=== PATIENT | female | born 1990 | race Caucasian/White ===

== ENCOUNTER → 2018-07-29 | Outpatient (CLI) | payer MEDICAID ==
--- NOTE | 2018-07-29 16:25 | RADIOLOGY REPORT (SQ) ---
EXAM DESCRIPTION: U/S OB 14+ TRNABD 1GES W/O DOP COMPLETED DATE/TIME: 07/29/2018 4:13 pm REASON FOR STUDY: Z34.82 ENCOUNTER FOR SUPERVISION OF OTHER NORMAL , SECOND TRIMESTE Z34.82 ENCOUNTER FOR SUPRVSN OF NORMAL , SECOND TRI COMPARISON: No previous this TECHNIQUE: Static and Dynamic grayscale imaging performed of gravid uterus using transabdominal appr oach. Additional selected color Doppler and spectral images recorded. All stored on PACS. LIMITATIONS: None. FINDINGS: FETUSES SEEN:1 EGA: 16 weeks 3 days Calculated using BPD,FL,HC,AC documented on images. No clinical dates for terri rison NANCY: 01/10/2019 EFW: 150 grams PERCENTILE: Not calculated TAYLOR: Largest pocket 3.4 cm PLACENTA: Anterior fundal GRADE: I PRESENTATION: Cephalic. ANATOMY: HEART RATE: 163 beats per minute. FOUR CHAMBER HEART: Visualized. THREE VESSEL CORD: Yes. CORD INSERTION: Visualized. KIDNEYS AND BLADDER: Visualized. Appear normal. STOMACH: Visualized. Appears normal. SPINE: Normal as visualized. BRAIN AND LATERAL VENTRICLES: Visualized. Appear normal. OTHER: No other significant finding. MATERNAL ADNEXA: Maternal ovaries not visualized. CERVICAL LENGTH: 4.1 cm Closed. OTHER: No other significant finding. IMPRESSION: LIVING INTRAUTERINE . ESTIMATED GESTATIONAL AGE 16 weeks 3 days NO VISUALIZED ANOMALIES. Trimester of : Second trimester - 13 weeks 1 day to 27 weeks 6 days. TECHNICAL DOCUMENTATION: JOB ID: [id number] [employer]- All Rights Reserved Reading location - IP/workstation name: [email or web address]
== END ==
LOC: RAD 15:12
PROVIDERS: ATTEND Midwife
DX: Z34.82 Encounter for supervision of other normal pregnancy, second trimester (principal)
CPT/HCPCS: 76805

== ENCOUNTER 2019-01-11 17:12 | Outpatient (CLI) | payer MEDICAID ==
--- NOTE | 2019-01-11 18:09 | Non Stress Test Report ---
Non Stress Test Datetime Report Generated by CPN: 01/11/2019 18:09 INDICATION Indication for Study: Ordered by Provider VITAL SIGNS Temperature - NST: 98.0 RESP - NST: 16 MONITORING Monitor Explained: Monitor Explained; Test Explained; Patient Verbalized Understanding Time on Monitor: 01/11/2019 17:23 Time off Monitor: 01/11/2019 18:05 NST Duration: 42 NST INTERVENTIONS NST Interventions: PO Hydration; Reposition Patient Physician Notified NST: Dr. Jacobsen BABY A: [id number] BABY A Movement : Present Contraction Frequency : none Accelerations : 15X15 Decelerations : None Variability : Moderate 6-25bpm NST Review: Meets Criteria for Reactive NST NST Review and Verified By : CAMDEN Mccord NST Results: Reactive NST REPORT Report Trigger: Send Report
== END 2019-01-11 17:55 | disposition home or self-care (01) ==
LOC: LC 17:12
PROVIDERS: ATTEND Student in an Organized Health Care Education/Training Program
PROC: 4A1HXCZ Monitoring of Products of Conception, Cardiac Rate, External Approach (ICD-10-PCS; principal; 2019-01-11)
DX: O48.0 Post-term pregnancy (principal); Z3A.40 40 weeks gestation of pregnancy
CPT/HCPCS: 59025

== ENCOUNTER 2019-01-14 17:39 | Inpatient (IN) | payer MEDICAID ==
[2019-01-14] MEDS ORDERED: RINGERS SOLUTION,LACTATED 1,000 ML IV ONE (17:54)
[2019-01-14] MEDS ORDERED: MISOPROSTOL 0.2 MG TABLET ONE (17:54)
[2019-01-14] MEDS ORDERED: RINGERS SOLUTION,LACTATED 1,000 ML IV PRN (17:54)
[2019-01-14] MEDS ORDERED: VANCOMYCIN HCL INJ 1000 MG VIAL ONE (17:54)
[2019-01-14] MEDS ORDERED: OXYTOCIN 10 UNIT/ML VIAL ONE (17:54)
[2019-01-14] MEDS ORDERED: OXYTOCIN/NORMAL SALINE 20 UNIT/1,000 ML RTUINJ ONE (17:55)
[2019-01-14] MEDS ORDERED: LIDOCAINE 1% INJ-PF (10 MG/ML) 30 ML SDV ONE (17:55)
[2019-01-14] MEDS ORDERED: VANCOMYCIN HCL 1,000 MG in DEXTROSE 5%-WATER 250 ML IV SCH (18:00)
[2019-01-14] MEDS ORDERED: NALBUPHINE HCL INJ 10 MG/1 ML AMPULE INJ ONE (18:21)
[2019-01-14] MEDS ORDERED: NALBUPHINE HCL INJ 10 MG/1 ML AMPULE ONE (18:22)
[2019-01-14] MEDS ORDERED: PROMETHAZINE HCL INJ 25 MG/1 ML VIAL ONE (18:24)
[2019-01-14 18:29] LABS: APPEARANCE,URINE CLEAR; BILIRUBIN,URINE NEGATIVE (NEGATIVE); COLOR,URINE YELLOW; GLUCOSE, URINE NEGATIVE (NEGATIVE); KETONES,URINE NEGATIVE (NEGATIVE); LEUKOCYTE ESTERASE,URINE NEGATIVE (NEGATIVE); NITRITE,URINE NEGATIVE (NEGATIVE); PROTEIN,URINE NEGATIVE (NEGATIVE); URINE SPECIFIC GRAVITY 1.009; UROBILINOGEN,URINE NEGATIVE mg/dL (<2.0)
[2019-01-14 18:40] LABS: URINE AMPHETAMINES SCREEN NEGATIVE; URINE BARBITURATES SCREEN NEGATIVE; URINE BENZODIAZEPINES SCREEN NEGATIVE; URINE COCAINE SCREEN NEGATIVE; URINE MARIJUANA (THC) SCREEN NEGATIVE; URINE METHADONE SCREEN NEGATIVE; URINE PHENCYCLIDINE SCREEN NEGATIVE
[2019-01-14 18:42] LABS: ABSOLUTE BASOPHILS # (AUTO) 0.1 10^3/uL (0.0-0.2); ABSOLUTE EOSINOPHILS # (AUTO) 0.2 10^3/uL (0.0-0.6); ABSOLUTE LYMPHOCYTES (AUTO) 1.5 10^3/uL (0.5-4.7); ABSOLUTE MONOCYTES (AUTO) 0.6 10^3/uL (0.1-1.4); ABSOLUTE NEUT (AUTO) 6.6 10^3/uL (1.7-8.2); BASOPHILS % (AUTO) 0.6 % (0-2); EOSINOPHILS % (AUTO) 1.9 % (0-6); HEMATOCRIT 34.8 % (36.0-47.0); LYMPHOCYTES % (AUTO) 17.2 % (13-45); MEAN CORPUSCULAR HEMOGLOBIN 28.2 pg (27.0-33.4); MEAN CORPUSCULAR HGB CONC 34.4 g/dL (32.0-36.0); MEAN CORPUSCULAR VOLUME 82 fl (80-97); MONOCYTES % (AUTO) 6.9 % (3-13); PLATELET COUNT 201 10^3/uL (150-450); RED BLOOD COUNT 4.24 10^6/uL (3.72-5.28); RED CELL DISTRIBUTION WIDTH 14.9 % (11.5-14.0); SEGMENTED NEUTROPHILS % (AUTO) 73.4 % (42-78); TOTAL CELLS COUNTED % (AUTO) 100 %; WHITE BLOOD COUNT 8.9 10^3/uL (4.0-10.5)
[2019-01-14] MEDS ORDERED: EPHEDRINE SULFATE INJ 50 MG/1 ML AMPULE ONE (20:22)
[2019-01-14] MEDS ORDERED: PHENYLEPHRINE HCL INJ/PF 10 MG/1 ML SDV ONE (20:22)
[2019-01-14] MEDS ORDERED: FENTANYL CITRATE INJ/PF 100 MCG/2 ML AMPUL ONE (20:22)
[2019-01-14] MEDS ORDERED: BUPIVACAINE HCL 0.25 % INJ/PF (2.5 MG/1 ML) 30 ML VIAL ONE (20:23)
[2019-01-14] MEDS ORDERED: FENTANYL/BUPIVACAINE/NS/PF 0 MCG/0 ML RTUINJ EPI ONE (20:23)
[2019-01-14] MEDS ORDERED: IBUPROFEN 800 MG TABLET ONE (21:04)
[2019-01-14] MEDS ORDERED: ACETAMINOPHEN WITH CODEINE #3 TABLET ONE (21:04)
[2019-01-14] MEDS ORDERED: DIPHENHYDRAMINE HCL 25 MG CAPSULE PO PRN (21:08)
[2019-01-14] MEDS ORDERED: BENZOCAINE/MENTHOL AEROSOL SPRAY 56 ML TOP PRN (21:08)
[2019-01-14] MEDS ORDERED: PROMETHAZINE HCL INJ 25 MG/1 ML VIAL IV PRN (21:08)
[2019-01-14] MEDS ORDERED: PROMETHAZINE HCL 25 MG SUPP.RECT PR PRN (21:08)
[2019-01-14] MEDS ORDERED: MEASLES,MUMPS&RUBELLA VACC/PF 0.5 ML VIAL SUBCUT PRN (21:08)
[2019-01-14] MEDS ORDERED: DIBUCAINE 1% OINTMENT 56 GM TP PRN (21:08)
[2019-01-14] MEDS ORDERED: PROMETHAZINE HCL 25 MG TABLET PO PRN (21:08)
[2019-01-14] MEDS ORDERED: ACETAMINOPHEN 650 MG SUPP.RECT PR PRN (21:08)
[2019-01-14] MEDS ORDERED: ZOLPIDEM TARTRATE 5 MG TABLET PO PRN (21:08)
[2019-01-14] MEDS ORDERED: OXYTOCIN/NORMAL SALINE 20 UNIT/1,000 ML RTUINJ IV PRN (21:08)
[2019-01-14] MEDS ORDERED: PSEUDOEPHEDRINE HCL 30 MG TABLET PO PRN (21:08)
[2019-01-14] MEDS ORDERED: NA PHOS,M-B/NA PHOS,DI-BA (ADULT) 133 ML ENEMA PR PRN (21:08)
[2019-01-14] MEDS ORDERED: MAGNESIUM HYDROXIDE SUSP 30 ML UDCUP PO PRN (21:08)
[2019-01-14] MEDS ORDERED: DIPH/PERTUSS(ACELL)/TETANUS VAC/PF 0.5 ML SYR (>=10YO) IM PRN (21:08)
[2019-01-14] MEDS ORDERED: ACETAMINOPHEN WITH CODEINE #3 TABLET PO PRN (21:08)
[2019-01-14] MEDS ORDERED: GLYCERIN/WITCH HAZEL LEAF 1 EACH MED..WIPE TP PRN (21:08)
--- NOTE | 2019-01-14 21:50 | Warning Signs in Babies ---
VOD Warning Signs Datetime Report Generated by [facility]: 01/14/2019 21:49 VOD#[id number] -Warning Signs in Babies: Needs to be viewed. (01/14/2019 21:02:Marietta Walker RN)
[2019-01-14] MEDS: FAMOTIDINE 20 MG TABLET PO SCH (23:38)
[2019-01-14] MEDS: IBUPROFEN 800 MG TABLET PO SCH (23:41)
--- NOTE | 2019-01-15 05:13 | Delivery Summary ---
Del Sum A-C Datetime Report Generated by CPN: 01/15/2019 05:13 DELIVERY PERSONNEL DELIVERY PERSONNEL: [id number] Delivery Doctor:: Lana Chopra MD Labor and Delivery Nurse:: Marietta Walker RN Labor and Delivery Nurse:: Su Goldberg RN Nursery Nurse:: Mayra Zuleta RN MATERNAL INFORMATION Delivery Anesthesia: None Medications After Delivery: Pitocin Bolus-Please Comment Meds After Delivery Comment: 20 units pitocin after placenta delivery Estimated Blood Loss (ml): 200 Maternal Complications: None LABOR SUMMARY EDC: 01/10/2019 00:00 No. Babies in Womb: 1 Attempted: No Labor Anesthesia: None LABOR INFORMATION Reason for Induction: Not Applicable Onset of Labor: 01/14/2019 17:52 Complete Dilatation: 01/14/2019 20:53 Oxytocin: N/A Group B Beta Strep: positive Antibiotics # of Doses: 1 Name of Antibiotic Given: vancomycin Steroids Given: None Reason Steroids Not Administered: Not Applicable MEMBRANES Membranes Rupture Method: Spontaneous Rupture of Membranes: 01/14/2019 18:36 Length of Rupture (hr): 2.35 Amniotic Fluid Color: Moderate Meconium Amniotic Fluid Color: Clear Amniotic Fluid Amount: Small Amniotic Fluid Odor: Normal STAGES OF LABOR Stage 1 hr: 3 Stage 1 min: 1 Stage 2 hr: 0 Stage 2 min: 4 Stage 3 hr: 0 Stage 3 min: 2 Total Time in Labor hr: 3 Total Time in Labor min: 7 VAGINAL DELIVERY Episiotomy: None Laceration #1: None Laceration Extension #1: N/A Laceration Repair: Not Applicable Sponge Count Correct: N/A Sharps Count Correct: N/A CSECTION DELIVERY Primary Indication: N/A Secondary Indication: N/A CSection Urgency: N/A CSection Incidence: N/A Labor: N/A Elective: N/A CSection Incision: N/A BABY A INFORMATION Infant Delivery Date/Time: 01/14/2019 20:57 Method of Delivery: Vaginal Born in Route : No : N/A Forceps: N/A Vacuum Extraction: N/A Shoulder Dystocia : Yes PRESENTATION/POSITION BABY A Presentation: Cephalic Cephalic Presentation: Vertex Vertex Position: Right Occipital Anterior Breech Presentation: N/A PLACENTA INFORMATION BABY A Placenta Delivery Time : 01/14/2019 20:59 Placenta Method of Delivery: Spontaneous Placenta Status: Delivered SCORES BABY A Heart Rate 1 min: >100 bpm Resp Effort 1 min: Good Cry Reflex Irritability 1 min: Cough or Sneeze or Pulls Away Muscle Tone 1 min: Some Flexion of Extremities Color 1 min: Blue/Pale Resuscitation Effort 1 min: Tactile Stimulation SCORE 1 MIN: 7 Heart Rate 5 min: >100 bpm Resp Effort 5 min: Good Cry Reflex Irritability 5 min: Cough or Sneeze or Pulls Away Muscle Tone 5 min: Active Motion Color 5 min: Body [place], Extremities Blue Resuscitation Effort 5 min: N/A SCORE 5 MIN: 9 INFORMATION BABY A Gestational Age at Delivery: 40.4 Gestational Status: Full Term- 39- 40.6 Weeks Outcome : Liveborn Condition : Stable Sex: Female IDENTIFICATION BABY A Verification Date/Time: 01/14/2019 21:39 ID Band Number: [id number] Mother's Name Verified: Yes Infant RN Verifying : Magnus Stanford, RN Additional Verifying Personnel: Tressa Goldberg RN WEIGHT/LENGTH BABY A Infant Birthweight (gm): 3413 Weight (lb): 7 Infant Weight (oz): 8 Infant Length (in): 20.00 Length (cm): 50.80 CORD INFORMATION BABY A No. Cord Vessels: 3 Nuchal Cord : Around Neck x2, Loose Cord Blood Taken: Yes-For Eval (Mom's Blood Type - or O+) Infant Suction: Mouth; Nose ASSESSMENT BABY A Complications: Meconium Physical Findings at Delivery: Other Physical Findings- Other: see nursery notes Infant Respirations: Appears Normal Skin to Skin: Yes Skin to Skin Time (min): 10 Meters Superintendent/ALS Called : No Care By: Mayra Jarrellxell RN Transferred To: Remains with Mother BABY B INFORMATION : N/A SIGNATURES Signature: with User ID: [email or web address]
[2019-01-15] MEDS: IBUPROFEN 800 MG TABLET PO SCH ×3 (06:11→21:52)
[2019-01-15 06:50] LABS: HEMATOCRIT 31.9 % (36.0-47.0); MEAN CORPUSCULAR HEMOGLOBIN 28.6 pg (27.0-33.4); MEAN CORPUSCULAR HGB CONC 34.6 g/dL (32.0-36.0); MEAN CORPUSCULAR VOLUME 83 fl (80-97); PLATELET COUNT 180 10^3/uL (150-450); RED BLOOD COUNT 3.86 10^6/uL (3.72-5.28); RED CELL DISTRIBUTION WIDTH 14.8 % (11.5-14.0); WHITE BLOOD COUNT 10.5 10^3/uL (4.0-10.5)
[2019-01-15] MEDS: SENNOSIDES/DOCUSATE 8.6-50 MG 1 EACH TABLET PO SCH (09:53)
[2019-01-15] MEDS: DOCUSATE SODIUM 100 MG CAPSULE PO SCH ×2 (09:53→18:38)
[2019-01-15] MEDS: PRENATAL VITAMIN W DHA CAPSULE PO SCH (09:53)
[2019-01-15] MEDS: FERROUS SULFATE 325 MG TABLET PO SCH ×2 (09:53→18:38)
[2019-01-15] MEDS: FAMOTIDINE 20 MG TABLET PO SCH ×2 (09:53→21:52)
[2019-01-15] MEDS: ACETAMINOPHEN WITH CODEINE #3 TABLET PO PRN ×2 (09:59→20:47)
--- NOTE | 2019-01-15 10:19 | PDOC PROGRESS REPORT ---
Subjective-OB Progress Note for:: 01/15/19 - PP Day #1, doing well, no complaints, O+, Rubella Immune Physical Exam (OB) Vital Signs: Temp Pulse Resp BP Pulse Ox 98.7 F 66 14 107/61 98 01/15/19 07:35 01/15/19 07:35 01/15/19 07:35 01/15/19 07:35 01/15/19 07:35 Intake & Output 01/14/19 01/15/19 01/16/19 06:59 06:59 06:59 Weight 68.2 kg - General General Appearance: Appears well, Alert In distress: None - Lochia Lochia Amount: Scant < 10 ml Lochia Color: Rubra/Red - Abdomen Description: Tender, Soft Hernia Present: No Fundal Description: Firm, Midline Fundal Height: u/u - u/2 - Respiratory Respiratory Status: No respiratory distress - Abdominal Distension: No distension - Genitourinary Genitourinary Note: voiding - Extremities Upper extremity: Normal inspection Lower extremities: Normal inspection - Neurological Cognition: Normal Orientation: AAOx4 - Psychological Associated symptoms: Normal affect, Normal mood - Skin Skin Temperature: Warm Skin Moisture: Dry Objective-Diagnostic Laboratory: 01/15/19 06:34 01/14/19 01/14/19 01/14/19 17:33 18:27 18:27 WBC 8.9 RBC 4.24 Hgb 12.0 Hct 34.8 L MCV 82 MCH 28.2 MCHC 34.4 RDW 14.9 H Plt Count 201 Seg Neutrophils % 73.4 Lymphocytes % 17.2 Monocytes % 6.9 Eosinophils % 1.9 Basophils % 0.6 Absolute Neutrophils 6.6 Absolute Lymphocytes 1.5 Absolute Monocytes 0.6 Absolute Eosinophils 0.2 Absolute Basophils 0.1 Urine Color YELLOW Urine Appearance CLEAR Urine pH 7.0 Ur Specific [place] 1.009 Urine Protein NEGATIVE Urine Glucose (UA) NEGATIVE Urine Ketones NEGATIVE Urine Blood LARGE H Urine Nitrite NEGATIVE Ur Leukocyte Esterase NEGATIVE Blood Type O POSITIVE Antibody Screen NEGATIVE 01/15/19 06:34 WBC 10.5 RBC 3.86 Hgb 11.0 L Hct 31.9 L MCV 83 MCH 28.6 MCHC 34.6 RDW 14.8 H Plt Count 180 Seg Neutrophils % Lymphocytes % Monocytes % Eosinophils % Basophils % Absolute Neutrophils Absolute Lymphocytes Absolute Monocytes Absolute Eosinophils Absolute Basophils Urine Color Urine Appearance Urine pH Ur Specific [place] Urine Protein Urine Glucose (UA) Urine Ketones Urine Blood Urine Nitrite Ur Leukocyte Esterase Blood Type Antibody Screen Assessment and Plan(PN) - Assessment and Plan (1) (normal spontaneous vaginal delivery) Is this a current diagnosis for this admission?: Yes (2) Group beta Strep positive Is this a current diagnosis for this admission?: Yes - Time Spent with Patient Time with patient: Less than 15 minutes Medications reviewed and adjusted accordingly: Yes - Disposition Anticipated Discharge: Home Within: within 24 hours
[2019-01-16] MEDS: IBUPROFEN 800 MG TABLET PO SCH ×2 (06:15→13:29)
[2019-01-16 08:06] VITALS: BP 96/59
[2019-01-16] MEDS: FERROUS SULFATE 325 MG TABLET PO SCH (09:45)
[2019-01-16] MEDS: DOCUSATE SODIUM 100 MG CAPSULE PO SCH (09:45)
[2019-01-16] MEDS: PRENATAL VITAMIN W DHA CAPSULE PO SCH (09:45)
[2019-01-16] MEDS: SENNOSIDES/DOCUSATE 8.6-50 MG 1 EACH TABLET PO SCH (09:45)
[2019-01-16] MEDS: FAMOTIDINE 20 MG TABLET PO SCH (09:45)
--- NOTE | 2019-01-16 09:51 | PDOC DISCHARGE SUMMARY ---
Final Diagnosis Discharge Date: 01/16/19 - Final Diagnosis (1) Group beta Strep positive Is this a current diagnosis for this admission?: Yes (2) (normal spontaneous vaginal delivery) Is this a current diagnosis for this admission?: Yes Discharge Data - Discharge Medication Home Medications: No122/Iron/Folic Acid [ Multi Tablet] 1 tab PO DAILY 01/11/19 Reason(s) for Admission: Onset of Labor Procedures: NST Intrapartum Procedure(s): Spontaneous Vaginal Delivery - Diagnosis Test Laboratory: Temp Pulse Resp BP Pulse Ox 98.3 F 90 16 96/59 L 100 01/16/19 08:05 01/16/19 08:05 01/16/19 08:05 01/16/19 08:05 01/16/19 08:05 01/14/19 01/14/19 01/15/19 17:33 18:27 06:34 RBC 4.24 3.86 Hgb 12.0 11.0 L Hct 34.8 L 31.9 L Urine Opiates Screen NEGATIVE - Discharge information/Instructions Discharge Activity: Balance Activity w/Rest, Pelvic Rest Discharge Diet: Regular Disposition: HOME, SELF-CARE Follow up with: [facility] in: 4, Weeks
--- NOTE | 2019-02-16 14:11 | PDOC H&P ---
History of Present Illness Admission Date/PCP: 01/14/19 17:55 RHETT SILVA MD History of Present Illness: PRO TRUJILLO is a 28 year old female at 40 4/7 wks EGA presenting with c omplaint of contractions every 3-5 minutes. Social History Information Source: Patient Lives with: Family, Spouse/Significant other Smoking Status: Unknown if Ever Smoked Frequency of Alcohol Use: None Hx Recreational Drug Use: No Family History Family History: None, Reviewed & Not Pertinent Parental Family History Reviewed: Yes Children Family History Reviewed: Yes Sibling(s) Family History Reviewed.: Yes Medication/Allergy Home Medications: No122/Iron/Folic Acid [ Multi Tablet] 1 tab PO DAILY 01/11/19 Ibuprofen [Motrin 800 mg Tablet] 800 mg PO Q8HP PRN #60 tablet 01/16/19 Allergies/Adverse Reactions: amoxicillin [Amoxicillin] Allergy (Unknown, Verified 01/11/19 18:10) latex Allergy (Verified 01/11/19 18:10) Review of Systems Constitutional: PRESENT: as per HPI Physical Exam - Physical Exam Vital Signs: Temp Pulse Resp BP Pulse Ox 98.3 F 90 16 96/59 L 100 01/16/19 13:44 01/16/19 13:44 01/16/19 13:44 01/16/19 13:44 01/16/19 13:44 General appearance: PRESENT: mild distress Head exam: PRESENT: atraumatic, normocephalic - Obstetrical Exam Dilation (cm): 5 Effacement (%): 90 Station: -1 Fundal Height: 3/u - 4/u Result Laboratory Results: 01/15/19 06:34 Assessment & Plan - Diagnosis (1) Qualifiers: Weeks of gestation: 41 weeks Qualified Code(s): Z3A.41 - 41 weeks gestation of Is this a current diagnosis for this admission?: Yes (2) Active labor at term Is this a current diagnosis for this admission?: Yes - Time Time Spent: 30 to 50 Minutes Critical Time spent with patient: Less than 15 minutes Anticipated discharge: Home Within: within 48 hours - Inpatient Certification Based on my medical assessment, after consideration of the patient's comorbidities, presenting symptoms, or acuity I expect that the services needed warrant INPATIENT care.: Yes I certify that my determination is in accordance with my understanding of Medicare's requirements for reasonable and necessary INPATIENT services [42 CFR 412.3e].: Yes Medical Necessity: Other - anticipate normal vaginal delivery
== END 2019-01-16 16:20 | disposition home or self-care (01) | DRG 807 ==
LOC: LC 17:39 → LR 17:55 → 2S 23:11
PROVIDERS: ADMIT Obstetrics & Gynecology; ATTEND Obstetrics & Gynecology
PROC: 10E0XZZ Delivery of Products of Conception, External Approach (ICD-10-PCS; principal; 2019-01-14)
DX: O99.824 Streptococcus B carrier state complicating childbirth (principal); Z37.0 Single live birth; O69.81X0 Labor and delivery complicated by cord around neck, without compression, not applicable or unspecified; O77.0 Labor and delivery complicated by meconium in amniotic fluid; O66.0 Obstructed labor due to shoulder dystocia; Z3A.40 40 weeks gestation of pregnancy; Z88.0 Allergy status to penicillin; Z91.040 Latex allergy status
CPT/HCPCS: 36415; 80307; 81005; 85025; 85027; 86592; 86850; 86900; 86901; J2300; J2370; J2550; J2590; J3010; J3370; J3490; J7060

== ENCOUNTER → 2020-02-19 | Outpatient (CLI) | payer OTHER ==
[2020-02-19 15:59] LABS: ABSOLUTE EOSINOPHILS # (AUTO) 0.1 10^3/uL (0.0-0.6); ABSOLUTE LYMPHOCYTES (AUTO) 1.3 10^3/uL (0.5-4.7); ABSOLUTE MONOCYTES (AUTO) 0.3 10^3/uL (0.1-1.4); ABSOLUTE NEUT (AUTO) 5.8 10^3/uL (1.7-8.2); BASOPHILS % (AUTO) 0.5 % (0-2); EOSINOPHILS % (AUTO) 1.6 % (0-6); HEMATOCRIT 40.5 % (36.0-47.0); HEMOGLOBIN 14.1 g/dL (12.0-15.5); LYMPHOCYTES % (AUTO) 17.4 % (13-45); MEAN CORPUSCULAR HEMOGLOBIN 29.6 pg (27.0-33.4); MEAN CORPUSCULAR HGB CONC 34.9 g/dL (32.0-36.0); MEAN CORPUSCULAR VOLUME 85 fl (80-97); MONOCYTES % (AUTO) 4.2 % (3-13); PLATELET COUNT 237 10^3/uL (150-450); RED BLOOD COUNT 4.77 10^6/uL (3.72-5.28); SEGMENTED NEUTROPHILS % (AUTO) 76.3 % (42-78); TOTAL CELLS COUNTED % (AUTO) 100 %; WHITE BLOOD COUNT 7.6 10^3/uL (4.0-10.5)
[2020-02-19 16:29] LABS: ALBUMIN 5.2 g/dL (3.5-5.0); ALKALINE PHOSPHATASE 81 U/L (38-126); ANION GAP 12 (5-19); ASPARTATE AMINO TRANSFERASE 29 U/L (14-36); BILIRUBIN,DIRECT 0.3 mg/dL (0.0-0.4); BILIRUBIN,TOTAL 0.5 mg/dL (0.2-1.3); BLOOD UREA NITROGEN 10 mg/dL (7-20); CALCIUM 9.9 mg/dL (8.4-10.2); CARBON DIOXIDE 26 mmol/L (22-30); CHLORIDE 103 mmol/L (98-107); GLUCOSE 86 mg/dL (75-110); IRON(TIBC) 59.1 ug/dL (37-170); POTASSIUM 4.1 mmol/L (3.6-5.0)
[2020-02-19 16:47] LABS: FREE T3 3.24 pg/mL (2.77-5.27); FREE T4 (FREE THYROXINE) 0.82 ng/dL (0.78-2.19)
[2020-02-19 17:01] LABS: THYROID STIMULATING HORMONE 3.45 uIU/mL (0.47-4.68)
== END ==
LOC: OD 14:06
PROVIDERS: ATTEND Clinical Neuropsychologist
DX: R53.82 Chronic fatigue, unspecified (principal); M54.2 Cervicalgia; G43.109 Migraine with aura, not intractable, without status migrainosus; F06.4 Anxiety disorder due to known physiological condition; F06.31 Mood disorder due to known physiological condition with depressive features
CPT/HCPCS: 36415; 80053; 82306; 82627; 82728; 83540; 83550; 84402; 84403; 84439; 84443; 84481; 85025; 86664; 86665

== ENCOUNTER → 2020-02-27 | Outpatient (CLI) | payer OTHER ==
[2020-02-28 07:58] LABS: THYROGLOBULIN AB <1.0 IU/mL (0.0-0.9); THYROID PEROXIDASE (TPO) AB <9 IU/mL (0-34)
== END ==
LOC: OD 08:00
PROVIDERS: ATTEND Clinical Neuropsychologist
DX: G43.109 Migraine with aura, not intractable, without status migrainosus (principal); R53.82 Chronic fatigue, unspecified; M54.2 Cervicalgia; F06.4 Anxiety disorder due to known physiological condition; F06.31 Mood disorder due to known physiological condition with depressive features; E03.9 Hypothyroidism, unspecified; R94.7 Abnormal results of other endocrine function studies
CPT/HCPCS: 36415; 82024; 86376; 86800

== ENCOUNTER → 2020-03-06 | Outpatient (CLI) | payer OTHER ==
--- NOTE | 2020-03-07 11:05 | RADIOLOGY REPORT (SQ) ---
EXAM DESCRIPTION: MRI HEAD COMBO IMAGES COMPLETED DATE/TIME: 03/06/2020 5:57 pm REASON FOR STUDY: G43.109 MIGRAINE WITH AURA, NOT INTRACTABLE, W/O STATUS MIGRAINOSUS, R53.82 G43.10 9 MIGRAINE WITH AURA, NOT INTRACTABLE, W/O STATUS MIGR R53.82 CHRONIC FATIGUE, UNSPECIFIED M54.2 C ERVICALGIA COMPARISON: None. TECHNIQUE: Multiplanar imaging includes non-contrasted T1, T2, FLAIR, diffusion with ADC map and pos t gadolinium contrast T1 sequences. Thin sections through the pituitary fossa pre and post contrast. Images stored on PACS. CONTRAST TYPE AND DOSE: 15 mL Prohance. RENAL FUNCTION: Not indicated. ACR Type II contrast agent associated with few, if any, unconfounded cases of NSF LIMITATIONS: None. FINDINGS: ANATOMY: No anomalies. Normal vascular flow voids. CSF SPACES: Normal in size and contour. No hemorrhage. PITUITARY FOSSA: On image 8 of series 15, there is a 2 mm subtle focus of decreased signal near the m idline. No evidence of macroadenoma. No asymmetry. Infundibulum midline. CEREBRUM: Sulci and gyri normal in size and contour. Normal white matter signal on FLAIR imaging. No evidence of hemorrhage, mass, or extraaxial fluid collection. No abnormal enhancement post contrast. POSTERIOR FOSSA: No signal alteration. No hemorrhage. No edema, masses, or mass effect. Internal aud itory canals, cerebello-pontine angles, mastoids normal. No enhancing lesions. ORBITS: No masses. Globes normal. PARANASAL SINUSES: No fluid levels. Mucosa normal. OTHER: No other significant finding. IMPRESSION: Questionable tiny pituitary microadenoma. No evidence of macroadenoma. TECHNICAL DOCUMENTATION: JOB ID: [id number] [employer]- All Rights Reserved Reading location - IP/workstation name: [email or web address]
== END ==
LOC: RAD 16:16
PROVIDERS: ATTEND Clinical Neuropsychologist
DX: G43.109 Migraine with aura, not intractable, without status migrainosus (principal); E03.9 Hypothyroidism, unspecified; R94.7 Abnormal results of other endocrine function studies; E24.9 Cushing's syndrome, unspecified; F06.4 Anxiety disorder due to known physiological condition; F40.240 Claustrophobia
CPT/HCPCS: 70553; A9576